=== PATIENT | male | born 1965 | race Caucasian/White ===

== ENCOUNTER 2018-06-27 07:23 | Inpatient (IN) | payer OTHER ==
[2018-06-27] MEDS: CEFAZOLIN 2 GM/50 ML (PMX) 50 ML IVPB (06:00)
[2018-06-27] MEDS: SOD CHLORIDE 0.9% 100 ML, TRANEXAMIC ACID 3,000 MG IRR (06:00)
[~2018-06-27 07:23] MED LIST: CEFAZOLIN 1 GM INJ; DESFLURANE 15 MIN; SUCCINYLCHOLINE CHLORIDE 100 MG/5 ML SYG IV
[2018-06-27] MEDS: GABAPENTIN 300 MG CAP PO ×2 (08:54→21:49)
[2018-06-27] MEDS: DEXAMETHASONE 1 MG TAB PO (08:54)
[2018-06-27] MEDS: SOD CHLORIDE 0.9% 1,000 ML IV (08:56)
[2018-06-27] MEDS ORDERED: MEPERIDINE 25 MG INJ IV (10:00)
[2018-06-27] MEDS ORDERED: DIPHENHYDRAMINE 50 MG INJ IV (10:00)
[2018-06-27] MEDS ORDERED: ONDANSETRON 4 MG INJ IV ×2 (10:00→12:00)
[2018-06-27] MEDS ORDERED: HYDROmorphONE 1 MG/5 ML IV SYRINGE IV ×2 (10:00)
[2018-06-27] MEDS ORDERED: ONDANSETRON 4 MG INJ (10:03)
[2018-06-27] MEDS ORDERED: METOCLOPRAMIDE 10 MG INJ (10:03)
[2018-06-27] MEDS ORDERED: PROPOFOL 20 ML ×2 (10:03→10:18)
[2018-06-27] MEDS ORDERED: ROCURONIUM 50 MG INJ ×2 (10:03→10:16)
[2018-06-27] MEDS ORDERED: MIDAZOLAM 1 MG/ML 2 ML INJ (10:03)
[2018-06-27] MEDS ORDERED: FENTAnyl 50 MCG/ML VIAL (10:07)
[2018-06-27] MEDS ORDERED: CEFAZOLIN 1 GM INJ (10:11)
[2018-06-27] MEDS ORDERED: morphine SULFATE/PF (10 MG/10 ML) INJ (10:18)
[2018-06-27] MEDS ORDERED: TRANEXAMIC ACID 1GM/100ML(PMX) 100 ML (10:18)
[2018-06-27] MEDS ORDERED: EPHEDrine 25 MG/5 ML SYG (10:24)
[2018-06-27] MEDS: POLYMYXIN/BACITRACIN 1L IRRIG (10:34)
[2018-06-27] MEDS: BUPIVACAINE 0.5% (SDV) 30 ML, morphine SULFATE (PF) 8 MG, EPINEPHrine 0.3 MG, KETOROLAC... IRR (10:34)
[2018-06-27] MEDS ORDERED: KETOROLAC 30 MG INJ (11:42)
[2018-06-27] MEDS ORDERED: GLYCOPYRROLATE 0.4 MG INJ (11:46)
[2018-06-27] MEDS ORDERED: NEOSTIGMINE 3 MG/3 ML SYRINGE (11:46)
[2018-06-27] MEDS ORDERED: MAGNESIUM HYDROXIDE 30ML CUP PO (12:00)
[2018-06-27] MEDS ORDERED: ZOLPIDEM 5 MG TAB PO (12:00)
[2018-06-27] MEDS ORDERED: NACL 0.9% 3 ML SYG IV (12:00)
[2018-06-27] MEDS ORDERED: oxyCODONE 5 MG TAB PO ×2 (12:00)
[2018-06-27] MEDS: DEXAMETHASONE 2 MG TAB PO ×3 (12:00→23:28)
[2018-06-27] MEDS: TRANEXAMIC ACID 1GM/100ML(PMX) 100 ML IVPB (12:24)
[2018-06-27] MEDS: THROMBIN 5000 UNIT VIAL (12:25)
[2018-06-27] MEDS: CA CHLORIDE (GM) 10% 10 ML INJ (12:25)
[2018-06-27 12:53] LABS: ADD MAN DIFF? NO
[2018-06-27 12:55] LABS: BASOPHILS % 0.2 % (0.0-2.0); EOSINOPHILS % 0.3 % (0.0-7.0); HEMATOCRIT 40.1 % (42.0-52.0); HEMOGLOBIN 12.9 g/dl (14.0-18.0); LYMPHOCYTES # 0.7 10^3/ul (0.8-2.9); LYMPHOCYTES % 7.4 % (15.0-51.0); MEAN CORPUSCULAR HEMOGLOBIN 28.7 pg (29.0-33.0); MEAN CORPUSCULAR HGB CONC 32.2 g/dl (32.0-37.0); MEAN CORPUSCULAR VOLUME 89.1 fl (82.0-101.0); MEAN PLATELET VOLUME 9.6 fl (7.4-10.4); MONOCYTE # 0.2 10^3/ul (0.3-0.9); MONOCYTES % 2.5 % (0.0-11.0); NEUTROPHIL # 8.6 10^3/ul (1.6-7.5); NEUTROPHILS % 89.1 % (39.0-77.0); PLATELET COUNT 247 10^3/UL (140-415); RED CELL DISTRIBUTION WIDTH 13.2 % (11.5-14.5)
[2018-06-27 12:55] LABS: WHITE BLOOD COUNT 9.7 10^3/ul (4.8-10.8)
[2018-06-27] MEDS: HYDROmorphONE 1 MG/5 ML IV SYRINGE IV (13:27)
[2018-06-27] MEDS: CEFAZOLIN 1 GM/50 ML (PMX) 50 ML IVPB ×2 (13:34→21:50)
[2018-06-27] MEDS: ACETAMINOPHEN 1000MG/100ML IV 100 ML IVPB ×2 (13:48→19:55)
[2018-06-27] MEDS: HYDROmorphONE 1 MG/ML SYG IV ×2 (15:37→22:27)
[2018-06-27] MEDS: oxyCODONE 5 MG TAB PO ×2 (19:40→23:28)
[2018-06-27] MEDS: LACTATED RINGER'S 1,000 ML IV ×2 (19:55→21:45)
[2018-06-27] MEDS: LABETALOL 200 MG TAB PO (21:00)
[2018-06-27] MEDS ORDERED: BUPRENORPHINE HCL 300 MCG BC (21:00)
[2018-06-27] MEDS: ATORVASTATIN 20 MG TAB PO (21:49)
[2018-06-27] MEDS: METHOCARBAMOL 750 MG TAB PO (21:49)
[2018-06-27] MEDS: SENNA/DOCUSATE NA (8.6MG/50MG) TAB PO (21:50)
[2018-06-28] MEDS: HYDROmorphONE 1 MG/ML SYG IV ×5 (02:30→20:27)
[2018-06-28] MEDS: oxyCODONE 5 MG TAB PO ×5 (03:22→22:22)
[2018-06-28] MEDS: ACETAMINOPHEN 1000MG/100ML IV 100 ML IVPB (04:07)
[2018-06-28] MEDS: CEFAZOLIN 1 GM/50 ML (PMX) 50 ML IVPB (05:20)
[2018-06-28] MEDS: DEXAMETHASONE 2 MG TAB PO (05:20)
[2018-06-28 05:53] LABS: ADD MAN DIFF? NO
[2018-06-28 05:58] LABS: BASOPHILS % 0.1 % (0.0-2.0); HEMATOCRIT 38.7 % (42.0-52.0); HEMOGLOBIN 12.3 g/dl (14.0-18.0); LYMPHOCYTES # 0.8 10^3/ul (0.8-2.9); LYMPHOCYTES % 5.4 % (15.0-51.0); MEAN CORPUSCULAR HGB CONC 31.8 g/dl (32.0-37.0); MEAN CORPUSCULAR VOLUME 91.3 fl (82.0-101.0); MEAN PLATELET VOLUME 10.4 fl (7.4-10.4); MONOCYTE # 0.8 10^3/ul (0.3-0.9); MONOCYTES % 5.5 % (0.0-11.0); NEUTROPHIL # 12.2 10^3/ul (1.6-7.5); NEUTROPHILS % 88.4 % (39.0-77.0); PLATELET COUNT 274 10^3/UL (140-415); RED BLOOD COUNT 4.24 10^6/ul (4.70-6.10); RED CELL DISTRIBUTION WIDTH 13.2 % (11.5-14.5)
[2018-06-28 05:58] LABS: WHITE BLOOD COUNT 13.9 10^3/ul (4.8-10.8)
[2018-06-28] MEDS: LACTATED RINGER'S 1,000 ML IV (07:45)
[2018-06-28] MEDS: ASPIRIN (EC) 325 MG TAB PO (08:44)
[2018-06-28] MEDS: SENNA/DOCUSATE NA (8.6MG/50MG) TAB PO ×2 (08:44→20:21)
[2018-06-28] MEDS: metFORMIN 500 MG TAB PO ×2 (08:44→18:07)
[2018-06-28] MEDS: FLUOXETINE 20 MG CAP PO (08:44)
[2018-06-28] MEDS: LABETALOL 200 MG TAB PO ×2 (08:47→20:20)
[2018-06-28] MEDS: LOSARTAN 50 MG TAB PO (08:48)
[2018-06-28] MEDS: ATORVASTATIN 20 MG TAB PO (20:19)
[2018-06-28] MEDS: GABAPENTIN 300 MG CAP PO (20:21)
[2018-06-28] MEDS: DIPHENHYDRAMINE 50 MG INJ IV (22:30)
[2018-06-29 05:00] LABS: ADD MAN DIFF? NO
[2018-06-29 05:05] LABS: WHITE BLOOD COUNT 10.5 10^3/ul (4.8-10.8)
[2018-06-29 05:05] LABS: BASOPHILS % 0.2 % (0.0-2.0); EOSINOPHILS # 0.1 10^3/ul (0.0-0.5); EOSINOPHILS % 1.1 % (0.0-7.0); HEMATOCRIT 35.2 % (42.0-52.0); HEMOGLOBIN 11.4 g/dl (14.0-18.0); LYMPHOCYTES # 1.9 10^3/ul (0.8-2.9); LYMPHOCYTES % 17.6 % (15.0-51.0); MEAN CORPUSCULAR HEMOGLOBIN 29.5 pg (29.0-33.0); MEAN CORPUSCULAR HGB CONC 32.4 g/dl (32.0-37.0); MEAN PLATELET VOLUME 10.2 fl (7.4-10.4); MONOCYTE # 1.2 10^3/ul (0.3-0.9); MONOCYTES % 11.5 % (0.0-11.0); NEUTROPHIL # 7.3 10^3/ul (1.6-7.5); NEUTROPHILS % 69.2 % (39.0-77.0); PLATELET COUNT 204 10^3/UL (140-415); RED BLOOD COUNT 3.87 10^6/ul (4.70-6.10); RED CELL DISTRIBUTION WIDTH 13.3 % (11.5-14.5)
[2018-06-29] MEDS: oxyCODONE 5 MG TAB PO ×4 (08:27→20:57)
[2018-06-29] MEDS: metFORMIN 500 MG TAB PO ×2 (08:42→17:56)
[2018-06-29] MEDS: FLUOXETINE 20 MG CAP PO (08:42)
[2018-06-29] MEDS: SENNA/DOCUSATE NA (8.6MG/50MG) TAB PO ×2 (08:42→20:51)
[2018-06-29] MEDS: ASPIRIN (EC) 325 MG TAB PO (08:43)
[2018-06-29] MEDS: LABETALOL 200 MG TAB PO ×2 (08:43→20:51)
[2018-06-29] MEDS: LOSARTAN 50 MG TAB PO (08:43)
[2018-06-29] MEDS: METHOCARBAMOL 750 MG TAB PO ×2 (10:33→17:56)
[2018-06-29] MEDS: GABAPENTIN 300 MG CAP PO (20:49)
[2018-06-29] MEDS: ATORVASTATIN 20 MG TAB PO (20:51)
[2018-06-29] MEDS: MAGNESIUM HYDROXIDE 30ML CUP PO (20:52)
[2018-06-29] MEDS: DIPHENHYDRAMINE 50 MG INJ IV (22:57)
[2018-06-30] MEDS: oxyCODONE 5 MG TAB PO ×3 (02:33→12:49)
[2018-06-30 05:09] LABS: ADD MAN DIFF? NO
[2018-06-30 05:18] LABS: BASOPHILS % 0.2 % (0.0-2.0); EOSINOPHILS # 0.2 10^3/ul (0.0-0.5); HEMATOCRIT 35.6 % (42.0-52.0); HEMOGLOBIN 11.6 g/dl (14.0-18.0); LYMPHOCYTES # 1.7 10^3/ul (0.8-2.9); LYMPHOCYTES % 21.3 % (15.0-51.0); MEAN CORPUSCULAR HEMOGLOBIN 28.9 pg (29.0-33.0); MEAN CORPUSCULAR HGB CONC 32.6 g/dl (32.0-37.0); MEAN CORPUSCULAR VOLUME 88.6 fl (82.0-101.0); MEAN PLATELET VOLUME 10.3 fl (7.4-10.4); MONOCYTES % 12.2 % (0.0-11.0); NEUTROPHIL # 5.1 10^3/ul (1.6-7.5); NEUTROPHILS % 63.8 % (39.0-77.0); PLATELET COUNT 194 10^3/UL (140-415); RED BLOOD COUNT 4.02 10^6/ul (4.70-6.10); RED CELL DISTRIBUTION WIDTH 13.4 % (11.5-14.5)
[2018-06-30] MEDS: FLUOXETINE 20 MG CAP PO (08:38)
[2018-06-30] MEDS: SENNA/DOCUSATE NA (8.6MG/50MG) TAB PO (08:39)
[2018-06-30] MEDS: ASPIRIN (EC) 325 MG TAB PO (08:39)
[2018-06-30] MEDS: metFORMIN 500 MG TAB PO (08:39)
[2018-06-30] MEDS: LOSARTAN 50 MG TAB PO (08:39)
[2018-06-30] MEDS: LABETALOL 200 MG TAB PO (08:39)
[2018-06-30] MEDS: METHOCARBAMOL 750 MG TAB PO (14:49)
== END 2018-06-30 16:05 | disposition home or self-care (01) | DRG 470 ==
LOC: REC 07:23 → MS1 14:05
PROVIDERS: Orthopaedic Surgery
PROC: 0SRR03A Replacement of Right Hip Joint, Femoral Surface with Ceramic Synthetic Substitute, Uncemented, Open Approach (ICD-10-PCS; principal; 2018-06-27 09:30)
DX: M16.11 Unilateral primary osteoarthritis, right hip (principal); E11.9 Type 2 diabetes mellitus without complications; E78.5 Hyperlipidemia, unspecified; I10 Essential (primary) hypertension; E66.9 Obesity, unspecified; Z68.34 Body mass index [BMI] 34.0-34.9, adult
CPT/HCPCS: 72170; 73530; 82962; 85025; 86999; 88304; 88311; 97110; 97116; 97161; 97530